=== PATIENT | female | born 1945 | race Caucasian/White ===

== ENCOUNTER 2021-01-28 18:30 | Outpatient (CLI) | payer MEDICARE | END 2021-01-28 18:31 | disposition home or self-care (01) | LOC: COV 18:30 | PROVIDERS: ATTEND Family Medicine | DX: R53.83 Other fatigue (principal); R68.83 Chills (without fever); R07.0 Pain in throat; R19.7 Diarrhea, unspecified; Z20.822 Contact with and (suspected) exposure to COVID-19 ==

== ENCOUNTER 2021-07-06 07:06 | Emergency (ER) | payer MEDICARE ==
--- NOTE | 2021-07-06 07:18 | ED Physician Documentation ---
PD HPI HEENT - Stated complaint Stated Complaint: BLOODY NOSE - History obtained from History obtained from: Patient - History of Present Illness Timing - onset: How many hours ago (2) Timing - duration: Hours (2) Timing - details: Abrupt onset, Still present Location: Nose (awoke with nosebleed this morning without apparent injury. No recent URI. Dripping blood degree of bleeding.) Associated symptoms: No: Fever, Congestion, Rhinorrhea Similar symptoms before: Has not had sx before (brief mild nosebleed a week or so ago, lasted just few minutes.) Recently seen: Clinic (is being evaluated for possible lung tumors, with CXR abnormal and getting CT chest tomorrow. Had swelling right calf/leg last week and U/S showed DVT in calf, so started on ELiquis 2 tabs BID for a week and then one BID. Is on day 5 of the 2 tabs.) Review of Systems Constitutional: denies: Fever, Chills Nose: denies: Rhinorrhea / runny nose, Congestion Throat: denies: Sore throat Respiratory: denies: Cough Neurologic: denies: Generalized weakness, Near syncope, Headache, Head injury PD PAST MEDICAL HISTORY - Past Medical History Cardiovascular: None, Deep vein thrombosis (recent Dx 5 days ago.) Respiratory: None Neuro: None Endocrine/Autoimmune: None - Allergies Allergies/Adverse Reactions: Allergies Allergy/AdvReac Type Severity Reaction Status Date / Time lisinopril Allergy Unknown Verified 07/06/21 07:20 PD ED PE NORMAL - Vitals Vital signs reviewed: Yes - General General: Alert and oriented X 3, No acute distress, Well developed/nourished - HEENT HEENT: Moist mucous membranes, Pharynx benign, Other (left anterior nasal b leeding when clamp removed, with brisk dripping. RIght side appears okay. Mucosa mostly normal with apparent small inflammed vessel bleedin on left. ) - Neck Neck: Supple, no meningeal sign, No adenopathy - Cardiac Cardiac: RRR, No murmur - Respiratory Respiratory: Clear bilaterally - Back Back: No CVA TTP - Derm Derm: Normal color, Warm and dry - Neuro Neuro: Alert and oriented X 3, No motor deficit, No sensory deficit, Normal speech Results - Vitals Vitals: Vital Signs - 24 hr 07/06/21 07/06/21 07:17 09:36 Temperature 36.3 C L 37.1 C Heart Rate 102 H 76 Respiratory 16 16 Rate Blood Pressure 162/93 H 132/86 H O2 Saturation 94 94 Oxygen O2 Source Room air - Labs Labs: Laboratory Tests 07/06/21 09:08 WBC 7.2 RBC 4.29 Hgb 14.4 Hct 43.0 MCV 100.2 H MCH 33.6 H MCHC 33.5 RDW 12.8 Plt Count 257 MPV 10.4 Neut # (Auto) 5.6 Lymph # (Auto) 0.6 L [place] # (Auto) 0.5 Eos # (Auto) 0.4 Baso # (Auto) 0.1 Absolute Nucleated RBC 0.00 Nucleated RBC % 0.0 Procedures - Epistaxis Site: Left, Anterior Preparation: Clots removed, Afrin, Lidocaine, Clamp / pressure applied, Other (TXA 4 ml) Treatment: Silver Nitrate, Packing inserted Other: Observed - no bleeding (it took few rounds of packing with afrin and TXA on cotton balls with clamping to finally have the bleeding stopped where I could identify and cauterize the suspect vessel. No further bleeding, and then merocel expanding foam placed.), Pt tolerated well PD MEDICAL DECISION MAKING - ED course Complexity details: reviewed results, re-evaluated patient, considered differential (recent Dx of DVT so want her to continue the anticoag. HOwever the loading of it with 2 tabs BID seems much for her, so will change it to 1 tab BID. ), d/w patient Departure - Departure Disposition: 01 Home, Self Care Clinical Impression: Anticoagulant effect, Epistaxis not due to trauma DVT (deep venous thrombosis) Qualifiers: DVT location: lower extremity Affected thrombotic vein of extremity: unspecified vein of extremity Chronicity: acute Laterality: right Qualified Code(s): I82.401 - Acute embolism and thrombosis of unspecified deep veins of right lower extremity Condition: Stable Record reviewed to determine appropriate education?: Yes Instructions: ED Nosebleed Follow-Up: Inocencia Davenport MD [Primary Care Provider] - Comments: I would suggest holding your morning dose of Eliquis and going with just 1 tablet twice daily starting this evening. It does seem likely the anticoagulant effect is a little too strong for you but we do want to continue treating your blood clot with the normal dose of the Eliquis. Keep the packing in the nostril until tomorrow. Try not to rub the nose or pull out the packing as that can dislodge any small clots at the area that had been bleeding. It did appear to be a small inflamed blood vessel that was bleeding briskly and seems to be stopped for now. Usually this will stay stopped. If you have recurrent bleeding, you can put some cool towels or ice on the bridge of the nose and pinch the nostril for 15 to 30 minutes. If it stops then following up as planned. If persistent bleeding then return to the ER. Your blood count and platelet count are good right now. Keep the packing in the nostril until tomorrow. I would suggest keeping it in through your imaging studies planned for the morning at [facility]. You could then go to your primary care or the walk-in there for the packing removal. Discharge Date/Time: 07/06/21 09:45
[2021-07-06] MEDS: OXYMETAZOLINE HCL 100 SPRAYS BOTTLE NAS STA (07:44)
[2021-07-06] MEDS: TRANEXAMIC ACID 1,000 MG/10 ML VIAL NAS STA (07:44)
[2021-07-06] MEDS: SILVER NITRATE APPLICATOR TOP STA (08:01)
[2021-07-06 09:14] LABS: BASOPHILS # (AUTO) 0.1 10^3/uL (0.0-0.1); BASOPHILS % (AUTO) 1.1 %; EOSINOPHILS # (AUTO) 0.4 10^3/uL (0.0-0.7); EOSINOPHILS % (AUTO) 5.4 %; HGB - HEMOGLOBIN 14.4 g/dL (12.0-16.0); LYMPHOCYTES # (AUTO) 0.6 10^3/uL (1.5-3.5); LYMPHOCYTES % (AUTO) 8.3 %; MEAN CORPUSCULAR HEMOGLOBIN 33.6 pg (27.0-31.0); MEAN CORPUSCULAR HGB CONC 33.5 g/dL (32.0-36.0); MEAN CORPUSCULAR VOLUME 100.2 fL (81.0-99.0); MEAN PLATELET VOLUME 10.4 fL (7.9-10.8); MONOCYTES # (AUTO) 0.5 10^3/uL (0.0-1.0); MONOCYTES % (AUTO) 7.1 %; NEUTROPHILS # (AUTO) 5.6 10^3/uL (1.5-6.6); PLT - PLATELET COUNT 257 10^3/uL (130-450); RED BLOOD COUNT 4.29 10^6/uL (4.20-5.40); RED CELL DISTRIBUTION WIDTH 12.8 % (12.0-15.0); WHITE BLOOD COUNT 7.2 x10^3/uL (4.8-10.8)
[2021-07-06 09:37] VITALS: BP 132/86
== END 2021-07-06 09:45 | disposition home or self-care (01) ==
LOC: ED 07:06
DX: R04.0 Epistaxis (principal); D68.32 Hemorrhagic disorder due to extrinsic circulating anticoagulants; T45.515A Adverse effect of anticoagulants, initial encounter; I82.401 Acute embolism and thrombosis of unspecified deep veins of right lower extremity
CPT/HCPCS: 30901; 36415; 85025; 99282; 99283; A9270